=== PATIENT | female | born 1940 | race Caucasian/White ===

== ENCOUNTER 2016-08-03 01:30 | Emergency (ER) | payer MEDICARE, OTHER ==
[2016-08-03 07:59] LABS: HEMOGLOBIN 12.3 gm/dl (12.3-15.3); RED BLOOD COUNT 4.07 M/UL (4.00-5.10); WHITE BLOOD COUNT 5.3 K/UL (4.5-11.0)
== END 2016-08-03 09:22 | disposition home or self-care (01) ==
LOC: ER1 01:30
PROVIDERS: Student in an Organized Health Care Education/Training Program
DX: S32.029A Unspecified fracture of second lumbar vertebra, initial encounter for closed fracture (principal); M48.06 Spinal stenosis, lumbar region; M54.30 Sciatica, unspecified side; R10.11 Right upper quadrant pain; R10.33 Periumbilical pain; G25.81 Restless legs syndrome; I12.9 Hypertensive chronic kidney disease with stage 1 through stage 4 chronic kidney disease, or unspecified chronic kidney disease; N18.9 Chronic kidney disease, unspecified; W01.0XXA Fall on same level from slipping, tripping and stumbling without subsequent striking against object, initial encounter; Z88.1 Allergy status to other antibiotic agents; Z88.0 Allergy status to penicillin; Y92.009 Unspecified place in unspecified non-institutional (private) residence as the place of occurrence of the external cause; Z79.891 Long term (current) use of opiate analgesic; Z79.899 Other long term (current) drug therapy
CPT/HCPCS: 36415; 72128; 72131; 80053; 81001; 83690; 85025; 87086; 96361; 96372; 96374; 96375; 99284; J2270; J2405; J7030

== ENCOUNTER 2021-03-13 11:36 | Emergency (ER) | payer MEDICARE, OTHER ==
[~2021-03-13 11:36] MED LIST: ROXICODONE5 MG PO; TAMIFLU 75 MG C75 MG PO
[2021-03-13 13:07] LABS: HEMOGLOBIN 11.7 gm/dl (12.3-15.3); RED BLOOD COUNT 3.8 M/UL (4.00-5.10); WHITE BLOOD COUNT 3.7 K/UL (4.5-11.0)
[2021-03-13 13:28] LABS: BUN/CREATININE RATIO 19 (0-10)
[2021-03-13] MEDS ORDERED: PHENERGAN 12.12.5 MG PR (17:34)
[2021-03-13] MEDS ORDERED: PHENERGAN 25 MG25 M1 PO (17:34)
[2021-03-13] MEDS ORDERED: ZITHROMAX250 MG PO (17:36)
== END 2021-03-13 17:44 | disposition home or self-care (01) ==
LOC: ER1 11:36
PROVIDERS: Student in an Organized Health Care Education/Training Program
DX: J40 Bronchitis, not specified as acute or chronic (principal); E86.0 Dehydration; I13.0 Hypertensive heart and chronic kidney disease with heart failure and stage 1 through stage 4 chronic kidney disease, or unspecified chronic kidney disease; I50.9 Heart failure, unspecified; N18.9 Chronic kidney disease, unspecified; Z20.822 Contact with and (suspected) exposure to COVID-19
CPT/HCPCS: 71045; 80053; 82550; 82553; 83874; 84484; 85025; 96374; 99284; J2405; J7030; Q9967; U0002

== ENCOUNTER 2021-03-18 08:55 | Inpatient (IN) | payer MEDICARE, OTHER ==
[~2021-03-18] VITALS: Ht 162.6 cm; Wt 70.3 kg
[~2021-03-18 08:55] MED LIST changes: +PHENERGAN 12.12.5 MG PR; +PHENERGAN 25 MG25 M1 PO; +ZITHROMAX250 MG PO
[2021-03-18 10:11] LABS: HEMOGLOBIN 10.7 gm/dl (12.3-15.3); RED BLOOD COUNT 3.47 M/UL (4.00-5.10)
[2021-03-18 10:45] LABS: WHITE BLOOD COUNT 6.7 K/UL (4.5-11.0)
[2021-03-18 10:48] LABS: BUN/CREATININE RATIO 22 (0-10)
[2021-03-19 03:30] LABS: HEMOGLOBIN 10.7 gm/dl (12.3-15.3); RED BLOOD COUNT 3.51 M/UL (4.00-5.10)
[2021-03-19 03:38] LABS: WHITE BLOOD COUNT 8.5 K/UL (4.5-11.0)
[2021-03-19] MEDS ORDERED: DULOXETINE HCL20 MG PO (10:41)
[2021-03-19] MEDS ORDERED: KLONOPIN TAB 00.5 MG PO (10:41)
[2021-03-19] MEDS ORDERED: GABAPENTIN600 MG PO (10:41)
[2021-03-19] MEDS ORDERED: CREON DR 36,001 EACH PO (10:42)
[2021-03-19] MEDS ORDERED: ZESTORETIC 20-1 EACH PO (10:43)
[2021-03-19] MEDS ORDERED: MESTINON60 MG PO ×2 (10:44→10:47)
[2021-03-19] MEDS ORDERED: TERBINAFINE HC250 MG PO (10:50)
[2021-03-19] MEDS ORDERED: VOLTAREN ARTHRI20 GM TP (10:51)
[2021-03-19] MEDS ORDERED: LEVOTHYROXINE75 MCG PO (10:52)
[2021-03-19] MEDS ORDERED: SIMVASTATIN20 MG PO (10:52)
[2021-03-19] MEDS ORDERED: ROPINIROLE HCL2 MG PO (10:53)
[2021-03-19] MEDS ORDERED: ENDOCET 10-3251 EACH PO (10:53)
[2021-03-19] MEDS ORDERED: POTASSIUM CHLO20 ME2 PO (10:54)
[2021-03-19] MEDS ORDERED: COLESTIPOL HCL1 GM PO (10:54)
[2021-03-19] MEDS ORDERED: PROTONIX40 MG PO (10:55)
[2021-03-19] MEDS ORDERED: BIOTIN1 M1 PO (10:55)
[2021-03-19] MEDS ORDERED: ASPIRIN81 MG PO (10:57)
[2021-03-19] MEDS ORDERED: VITAMIN B-1250 MCG PO (10:57)
[2021-03-19] MEDS ORDERED: BENADRYL25 MG PO (10:58)
[2021-03-21 03:00] LABS: HEMOGLOBIN 11.3 gm/dl (12.3-15.3); RED BLOOD COUNT 3.72 M/UL (4.00-5.10)
[2021-03-21 03:03] LABS: WHITE BLOOD COUNT 4.7 K/UL (4.5-11.0)
[2021-03-22 02:22] LABS: HEMOGLOBIN 10.9 gm/dl (12.3-15.3); RED BLOOD COUNT 3.67 M/UL (4.00-5.10)
[2021-03-22 02:25] LABS: WHITE BLOOD COUNT 6.2 K/UL (4.5-11.0)
[2021-03-23 02:24] LABS: HEMOGLOBIN 10.7 gm/dl (12.3-15.3); RED BLOOD COUNT 3.57 M/UL (4.00-5.10); WHITE BLOOD COUNT 7.7 K/UL (4.5-11.0)
[2021-03-23] MEDS ORDERED: IPRAT-ALBUT 0.5-3 ML NEB (16:07)
[2021-03-23] MEDS ORDERED: AMLODIPINE BESYL5 MG PO (16:07)
[2021-03-23] MEDS ORDERED: [UNRECOGNIZED DRUG - OTHER] MC (16:20)
[2021-03-23] MEDS ORDERED: DOXYCYCLINE HY100 MG PO (16:20)
== END 2021-03-23 16:01 | disposition home health service (06) | DRG 56 ==
LOC: ER1 08:55 → CDU 13:47 → PROG CARE 13:47 → M/S 15:34 → PROG CARE 19:40
PROVIDERS: Internal Medicine; Physician Assistant; Physician Assistant Medical; ADMIT Internal Medicine Infectious Disease
DX: G70.01 Myasthenia gravis with (acute) exacerbation (principal); J69.0 Pneumonitis due to inhalation of food and vomit; J96.01 Acute respiratory failure with hypoxia; F11.20 Opioid dependence, uncomplicated; Z20.822 Contact with and (suspected) exposure to COVID-19; M54.9 Dorsalgia, unspecified; R13.10 Dysphagia, unspecified; K21.9 Gastro-esophageal reflux disease without esophagitis; K22.2 Esophageal obstruction; G89.29 Other chronic pain; E78.5 Hyperlipidemia, unspecified; E03.9 Hypothyroidism, unspecified; S09.90XA Unspecified injury of head, initial encounter; S01.01XA Laceration without foreign body of scalp, initial encounter; W01.0XXA Fall on same level from slipping, tripping and stumbling without subsequent striking against object, initial encounter; I12.9 Hypertensive chronic kidney disease with stage 1 through stage 4 chronic kidney disease, or unspecified chronic kidney disease; N18.30 Chronic kidney disease, stage 3 unspecified; Z88.0 Allergy status to penicillin; Z88.8 Allergy status to other drugs, medicaments and biological substances; Z79.899 Other long term (current) drug therapy; Z79.82 Long term (current) use of aspirin; Z79.52 Long term (current) use of systemic steroids
CPT/HCPCS: 12001; 36415; 36600; 70450; 71045; 72125; 72128; 72131; 73502; 74230; 80048; 80053; 82550; 82553; 82803; 83605; 83735; 83874; 83880; 84484; 85025; 85027; 86140; 87040; 87070; 87077; 87186; 87205; 92610; 92611-GN; 93005; 94640; 94760; 96374; 96375; 99285; C9113; J0171; J0456; J0696; J1100; J1335; J1568; J1568-JG; J1650; J1940; J2020; J2185; J2795; J7030; U0002

== ENCOUNTER 2021-06-01 11:29 | Inpatient (IN) | payer MEDICARE, OTHER ==
[~2021-06-01] VITALS: Ht 162.6 cm; Wt 75.8 kg
[~2021-06-01 11:29] MED LIST changes: +AMLODIPINE BESYL5 MG PO; +ASPIRIN81 MG PO; +BENADRYL25 MG PO; +BIOTIN1 M1 PO; +COLESTIPOL HCL1 GM PO; +CREON DR 36,001 EACH PO; +DOXYCYCLINE HY100 MG PO; +DULOXETINE HCL20 MG PO; +ENDOCET 10-3251 EACH PO; +GABAPENTIN600 MG PO; +IPRAT-ALBUT 0.5-3 ML NEB; +KLONOPIN TAB 00.5 MG PO; +LEVOTHYROXINE75 MCG PO; +MESTINON TAB 6060 MG PO; +MESTINON60 MG PO; +POTASSIUM CHLO20 ME2 PO; +PROTONIX40 MG PO; +ROPINIROLE HCL2 MG PO; +SIMVASTATIN20 MG PO; +TERBINAFINE HC250 MG PO; +VITAMIN B-1250 MCG PO; +VOLTAREN ARTHRI20 GM TP; +ZESTORETIC 20-1 EACH PO; +[UNRECOGNIZED DRUG - OTHER] MC
[2021-06-01 13:07] LABS: HEMOGLOBIN 11.7 gm/dl (12.3-15.3)
[2021-06-01 13:11] LABS: BORDETELLA PARAPERTUSSIS Not Detected (Not Detectd); BORDETELLA PERTUSSIS Not Detected (Not Detectd); CHLAMYDIA PNEUMONIAE Not Detected (Not Detectd); CORONAVIRUS HKU1 Not Detected (Not Detectd); CORONAVIRUS NL63 Not Detected (Not Detectd); CORONAVIRUS OC43 Not Detected (Not Detectd); CORONOAVIRUS 229E Not Detected (Not Detectd); HUMAN METAPNEUMOVIRUS Not Detected (Not Detectd); HUMAN RHINOVIRUS/ENTEROVIRUS Not Detected (Not Detectd); INFLUENZA A Not Detected (Not Detectd); INFLUENZA B Not Detected (Not Detectd); MYCOPLASMA PNEUMONIAE Not Detected (Not Detectd); PARAINFLUENZA VIRUS 1 Not Detected (Not Detectd); PARAINFLUENZA VIRUS 2 Not Detected (Not Detectd); PARAINFLUENZA VIRUS 3 Not Detected (Not Detectd); PARAINFLUENZA VIRUS 4 Not Detected (Not Detectd); RESPIRATORY SYNCYTIAL VIRUS Not Detected (Not Detectd)
[2021-06-01 13:18] LABS: RED BLOOD COUNT 3.85 M/UL (4.00-5.10); WHITE BLOOD COUNT 13.9 K/UL (4.5-11.0)
[2021-06-01 14:06] LABS: SARS-CoV-2 NOT DETECTED (Not Detectd)
[2021-06-01] MEDS ORDERED: MECLIZINE HCL12.5 MG PO (17:09)
[2021-06-02] MEDS ORDERED: ACETAMINOPHEN500 MG PO (04:15)
[2021-06-02 05:12] LABS: HEMOGLOBIN 9.9 gm/dl (12.3-15.3)
[2021-06-02 05:15] LABS: RED BLOOD COUNT 3.34 M/UL (4.00-5.10); WHITE BLOOD COUNT 8.3 K/UL (4.5-11.0)
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
[2021-06-03 04:30] LABS: HEMOGLOBIN 9.5 gm/dl (12.3-15.3); RED BLOOD COUNT 3.24 M/UL (4.00-5.10); WHITE BLOOD COUNT 6.7 K/UL (4.5-11.0)
[2021-06-03] MEDS ORDERED: AMLODIPINE BESYL5 MG PO (12:39)
[2021-06-03] MEDS ORDERED: BACTRIM DS TAB1 EACH PO (12:39)
--- NOTE | 2021-06-03 18:16 | NUR ---
1338 - PATIENT NOTED TO BE ALARMING. UPON ENTERING ROOM, OTHER NURSE RANDY AT BEDSIDE ATTEMPTING TO GET PATIENT TO STAY IN BED. PATIENT NOTED TO BE ANXIOUS, ATTEMPTING TO GET UP WITHOUT ASSIST TO FIND . PATIENT NOTED TO HAVE AUDIBLE COARSE LUNG SOUNDS WITHOUT STETHOSCOPE. PATIENT NOTED TO BE CLAMMY AND PALE. PRIMARY NURSE WENT TO GET VS MACHINE AND ASKED ANOTHER NURSE EDUARDO TO ASSIST WITH PATIENT CARE. UPON ENTERING ROOM PATIENT NOTED TO BEGIN COUGHING UP PINK TINGED FROTHY SPUTUM. DR. DILLON NOTIFIED VIA TELEPHONE THAT PATIENT SEEMED WITH DC ORDER HAS HAD A CHANGE IN CONDITION. PATIENT LAID BACK ON BED AND NOTED TO HAVE NO RESPIRATIONS OR PULSE. CPR BEGAN AND CODE INITIATED AT 1340. SEE CODE BLUE NOTE SHEETS FOR DETAILS. AFTER MULTIPLE ROUNDS OF CPR AND MEDICATIONS AND PATIENT BEING INTUBATED, PULSE OBTAINED AT 1348. PATIENT TRANSFERED TO ICU AT 1411.
[2021-06-04 04:56] LABS: HEMOGLOBIN 10.9 gm/dl (12.3-15.3)
[2021-06-04 04:59] LABS: RED BLOOD COUNT 3.63 M/UL (4.00-5.10); WHITE BLOOD COUNT 15.3 K/UL (4.5-11.0)
[2021-06-05 05:40] LABS: HEMOGLOBIN 10.2 gm/dl (12.3-15.3); RED BLOOD COUNT 3.42 M/UL (4.00-5.10); WHITE BLOOD COUNT 16.4 K/UL (4.5-11.0)
[2021-06-06 05:33] LABS: RED BLOOD COUNT 3.4 M/UL (4.00-5.10); WHITE BLOOD COUNT 8.8 K/UL (4.5-11.0)
[2021-06-07 04:45] LABS: HEMOGLOBIN 9.2 gm/dl (12.3-15.3); RED BLOOD COUNT 3.1 M/UL (4.00-5.10); WHITE BLOOD COUNT 10.6 K/UL (4.5-11.0)
[2021-06-08 05:40] LABS: HEMOGLOBIN 8.7 gm/dl (12.3-15.3); RED BLOOD COUNT 2.95 M/UL (4.00-5.10)
[2021-06-08 05:41] LABS: WHITE BLOOD COUNT 6.4 K/UL (4.5-11.0)
[2021-06-09 04:24] LABS: HEMOGLOBIN 8.3 gm/dl (12.3-15.3); RED BLOOD COUNT 2.84 M/UL (4.00-5.10)
[2021-06-10 04:30] LABS: HEMOGLOBIN 8.8 gm/dl (12.3-15.3); RED BLOOD COUNT 3.04 M/UL (4.00-5.10); WHITE BLOOD COUNT 8.5 K/UL (4.5-11.0)
[2021-06-11 05:44] LABS: HEMOGLOBIN 8.5 gm/dl (12.3-15.3); WHITE BLOOD COUNT 12.8 K/UL (4.5-11.0)
[2021-06-12 05:36] LABS: HEMOGLOBIN 7.7 gm/dl (12.3-15.3); RED BLOOD COUNT 2.71 M/UL (4.00-5.10); WHITE BLOOD COUNT 12.6 K/UL (4.5-11.0)
[2021-06-13 06:03] LABS: HEMOGLOBIN 7.3 gm/dl (12.3-15.3); RED BLOOD COUNT 2.54 M/UL (4.00-5.10)
[2021-06-13 06:05] LABS: WHITE BLOOD COUNT 6.9 K/UL (4.5-11.0)
[2021-06-13 16:13] LABS: ORGANISM ID Not indicated. (.); SPECIMEN SOURCE Urine (.); STREPTOCOCCUS PNEUMONIAE AG Negative (Negative)
[2021-06-14 05:32] LABS: HEMOGLOBIN 7.9 gm/dl (12.3-15.3); RED BLOOD COUNT 2.77 M/UL (4.00-5.10); WHITE BLOOD COUNT 9.8 K/UL (4.5-11.0)
--- NOTE | 2021-06-14 12:51 | NUR ---
1212: PATIENT HAS BRADYCARDIA THAT LEADS TO A HR OF 26. I AM AT THE BEDSIDE AND ASK FOR ASSISTANCE. PACER PADS APPLIED TO PATIENT. HR CAME BACK UP WITHOUT MEDIACTION TO 80'S. DR. DE SOUZA NOTIFIED AND SAID SHE WOULD COME BY TO SEE THE PATIENT. ATROPINE AT THE BEDSIDE IF NEEDED.
[2021-06-16 06:02] LABS: HEMOGLOBIN 7.1 gm/dl (12.3-15.3); RED BLOOD COUNT 2.57 M/UL (4.00-5.10); WHITE BLOOD COUNT 10.1 K/UL (4.5-11.0)
[2021-06-17 05:28] LABS: HEMOGLOBIN 7.2 gm/dl (12.3-15.3); RED BLOOD COUNT 2.6 M/UL (4.00-5.10)
[2021-06-17 05:30] LABS: WHITE BLOOD COUNT 7.5 K/UL (4.5-11.0)
[2021-06-18 05:18] LABS: RED BLOOD COUNT 2.83 M/UL (4.00-5.10); WHITE BLOOD COUNT 7.4 K/UL (4.5-11.0)
[2021-06-18 06:02] LABS: BUN/CREATININE RATIO 99 (0-10)
== END 2021-06-19 00:31 | disposition expired | DRG 870 ==
LOC: ER1 11:29 → CDU 16:57 → CCU 16:57 → M/S 06-02 13:44 → CCU 06-03 14:35
PROVIDERS: Family Medicine; Internal Medicine; Internal Medicine Nephrology; Nurse Practitioner; ADMIT Internal Medicine
PROC: 02HV33Z Insertion of Infusion Device into Superior Vena Cava, Percutaneous Approach (ICD-10-PCS; 2021-06-01)
PROC: B548ZZA Ultrasonography of Superior Vena Cava, Guidance (ICD-10-PCS; 2021-06-01)
PROC: 5A12012 Performance of Cardiac Output, Single, Manual (ICD-10-PCS; principal; 2021-06-03)
PROC: 3E043XZ Introduction of Vasopressor into Central Vein, Percutaneous Approach (ICD-10-PCS; 2021-06-03)
PROC: 0BH17EZ Insertion of Endotracheal Airway into Trachea, Via Natural or Artificial Opening (ICD-10-PCS; 2021-06-03)
PROC: 5A1945Z Respiratory Ventilation, 24-96 Consecutive Hours (ICD-10-PCS; 2021-06-03)
PROC: B24BZZZ Ultrasonography of Heart with Aorta (ICD-10-PCS; 2021-06-04)
PROC: 5A0935A Assistance with Respiratory Ventilation, Less than 24 Consecutive Hours, High Flow/Velocity Cannula (ICD-10-PCS; 2021-06-11)
PROC: 5A09457 Assistance with Respiratory Ventilation, 24-96 Consecutive Hours, Continuous Positive Airway Pressure (ICD-10-PCS; 2021-06-11)
PROC: 5A1955Z Respiratory Ventilation, Greater than 96 Consecutive Hours (ICD-10-PCS; 2021-06-14)
PROC: 0BH17EZ Insertion of Endotracheal Airway into Trachea, Via Natural or Artificial Opening (ICD-10-PCS; 2021-06-14)
DX: A41.9 Sepsis, unspecified organism (principal); J18.9 Pneumonia, unspecified organism; Z20.822 Contact with and (suspected) exposure to COVID-19; Z66 Do not resuscitate; Z51.5 Encounter for palliative care; R65.21 Severe sepsis with septic shock; G93.41 Metabolic encephalopathy; I21.4 Non-ST elevation (NSTEMI) myocardial infarction; J80 Acute respiratory distress syndrome; G70.01 Myasthenia gravis with (acute) exacerbation; N39.0 Urinary tract infection, site not specified; K86.1 Other chronic pancreatitis; N17.9 Acute kidney failure, unspecified; I13.0 Hypertensive heart and chronic kidney disease with heart failure and stage 1 through stage 4 chronic kidney disease, or unspecified chronic kidney disease; E87.3 Alkalosis; E87.0 Hyperosmolality and hypernatremia; I47.1 Supraventricular tachycardia; R57.0 Cardiogenic shock; I46.2 Cardiac arrest due to underlying cardiac condition; L89.312 Pressure ulcer of right buttock, stage 2; E87.6 Hypokalemia; E83.39 Other disorders of phosphorus metabolism; D69.6 Thrombocytopenia, unspecified; I95.9 Hypotension, unspecified; E87.8 Other disorders of electrolyte and fluid balance, not elsewhere classified; R00.1 Bradycardia, unspecified; E87.70 Fluid overload, unspecified; I50.9 Heart failure, unspecified; N18.32 Chronic kidney disease, stage 3b; R13.10 Dysphagia, unspecified; E87.5 Hyperkalemia; I25.10 Atherosclerotic heart disease of native coronary artery without angina pectoris; I49.3 Ventricular premature depolarization; E86.0 Dehydration; E03.9 Hypothyroidism, unspecified; Z82.49 Family history of ischemic heart disease and other diseases of the circulatory system; Z98.51 Tubal ligation status; Z88.0 Allergy status to penicillin; Z88.8 Allergy status to other drugs, medicaments and biological substances; Z90.49 Acquired absence of other specified parts of digestive tract; Z88.1 Allergy status to other antibiotic agents
CPT/HCPCS: ECHO; 31500; 36415; 36556; 36600; 70450; 71045; 73030; 73060; 73200; 74018; 80048; 80053; 80202; 80307; 81001; 82140; 82533; 82550; 82553; 82607; 82803; 82962; 83605; 83735; 83874; 83880; 84100; 84132; 84439; 84443; 84484; 85025; 85027; 85379; 85610; 85652; 85730; 86140; 87040; 87070; 87081; 87086; 87205; 87278; 87633; 87899; 92526; 92610; 92950; 93005; 93306; 94002; 94003; 94640; 94660; 94760; 96374; 97110-GP-CQ; 97162; 97164; 97166; 97530-GP-CQ; 99285; C1751; C9113; G0480; J0153; J0171; J0360; J0461; J0610; J0692; J0696; J1120; J1644; J1650; J1940; J2060; J2185; J2270; J2704; J3010; J3370; J3475; J3480; J3486; J7030; J7050; J7070; U0002